=== PATIENT | male | born 1945 | race Caucasian/White ===

== ENCOUNTER 2016-06-25 11:42 | Observation (INO) | payer OTHER, MEDICARE ==
[2016-06-25] MEDS ORDERED: diphenhydrAMINE 25 MG CAP PO ONE (11:44)
[2016-06-25] MEDS ORDERED: NS 1,000 ML IV ONE (11:44)
[2016-06-25] MEDS ORDERED: ceFAZolin 2 GM/DEXTROSE 100 ML IV ONE (11:44)
[2016-06-25] MEDS ORDERED: DIAZEPAM 5 MG TAB PO ONE (11:44)
[2016-06-25] MEDS ORDERED: BACITRACIN IRRIGATION/NS 50,000 UNITS/1,000 ML BTL IRR ONE (11:44)
--- NOTE | 2016-06-25 12:05 | CPEKG ---
Heart Rate: 88 RR Interval: 682 QRSD Interval: 88 QT Interval: 372 QTC Interval: 450 QRS [place]: 118 T Wave [place]: 47 EKG Severity - ABNORMAL ECG - EKG Impression: ATRIAL FIBRILLATION, V-RATE 61-103 EKG Impression: RIGHT AXIS DEVIATION EKG Impression: LOW VOLTAGE THROUGHOUT EKG Impression: BORDERLINE R WAVE PROGRESSION, ANTERIOR LEADS Electronically Signed By: Graham Hayes 25-Jun-2016 16:56:51
[2016-06-25 12:21] LABS: % IMMATURE GRANULYOCYTES 0.3 % (0.0-1.1); ABSOLUTE IMMATURE GRANULOCYTES 0.03 10^3/uL (0.00-0.10); ADD DIFF? NO; ADD MORPH? NO; ADD SCAN? NO; ATYPICAL LYMPHOCYTE FLAG 10 (0-99); FRAGMENT RBC FLAG 0 (0-99); HEMATOCRIT 47.8 % (40.0-51.0); HEMOGLOBIN 16.2 g/dL (13.7-17.5); LEFT SHIFT FLG 0 (0-99); LIPEMIA HEMOLYSIS FLAG 90 (0-99); MEAN CELL HEMOGLOBIN 31.3 pg (27.9-34.1); MEAN CELL HEMOGLOBIN CONCENTR. 33.9 g/dL (32.4-36.7); MEAN CELL VOLUME 92.5 fL (81.5-99.8); MEAN PLATELET VOLUME 8.9 fL (8.7-11.7); PLATELET CLUMPS FLAG 0 (0-99); PLATELET COUNT 261 10^3/uL (150-400); RED BLOOD CELL COUNT 5.17 10^6/uL (4.40-6.38); RED CELL DISTRIBUTION WIDTH 14.2 % (11.5-15.2)
[2016-06-25 12:39] LABS: INR 1.16 (0.83-1.16); PROTIME(PATIENT) 14.8 SEC (12.0-15.0)
[2016-06-25] MEDS ORDERED: LIDOCAINE 1% 30 ML SDV ONE (12:47)
[2016-06-25] MEDS ORDERED: BUPIVACAINE 0.5% 30 ML SDV ONE (12:48)
[2016-06-25] MEDS ORDERED: LIDO/EPI 1% **for epidural** 30 ML SDV ONE (12:48)
[2016-06-25] MEDS ORDERED: fentaNYL 100 MCG/2 ML INJ ONE ×2 (12:48→14:26)
[2016-06-25] MEDS ORDERED: IOPAMIDOL (ISOVUE-300) 200 ML BTL IV ONE (12:48)
[2016-06-25] MEDS ORDERED: MIDAZOLAM 2 MG/2 ML VIAL ONE ×2 (12:48→14:26)
[2016-06-25 14:06] LABS: ANION GAP 8 mEq/L (8-16); CALCIUM 8.8 mg/dL (8.5-10.4); CARBON DIOXIDE 24 mEq/l (22-31); CHLORIDE 107 mEq/L (97-110); CREATININE 0.8 mg/dL (0.7-1.3); GLOMERULAR FILTRATION RATE > 60; GLUCOSE 89 mg/dL (70-100); POTASSIUM 4.6 mEq/L (3.5-5.2); SODIUM 139 mEq/L (134-144)
--- NOTE | 2016-06-25 15:17 | CPEKG ---
Heart Rate: 81 RR Interval: 741 QRSD Interval: 90 QT Interval: 380 QTC Interval: 441 QRS [place]: 110 T Wave [place]: 38 EKG Severity - ABNORMAL ECG - EKG Impression: ATRIAL FIBRILLATION, V-RATE 67-96 EKG Impression: VENTRICULAR PREMATURE COMPLEX EKG Impression: RIGHT AXIS DEVIATION EKG Impression: LOW VOLTAGE THROUGHOUT EKG Impression: demand ventricular pacemaker. Electronically Signed By: Graham Hayes 25-Jun-2016 16:56:44
--- NOTE | 2016-06-25 15:23 | CPIP ---
[f rep st] INVASIVE CARDIAC PROCEDURE DATE OF PROCEDURE: 06/25/2016 INDICATIONS: Mr. Vallecillo is 70 years old. He has a history of chronic atrial fibrillation with sick sinus syndrome. Holter monitoring indicated multiple cardiac pauses up to 3.5 seconds associated wit h previous diagnosed episodes of syncope. PROCEDURE: Implantation of a single-chamber pacemaker. TECHNIQUE: Following informed consent and after the administration of prophylactic antibiotics, the patient was brought to the cardiac catheterization laboratory. The left chest was prepped and draped in the usual sterile fashion. 2% lidocaine was infiltrated into the skin below the left clavicle. A venogram was performed, which identified a widely patent axillary and subclavian system. Using the #10 blade, a 3 cm incision was made, which was carried down to the prepectoral fascia. The pacemake r pocket was fashioned. Using modified Seldinger technique, access was gained to the axillary vein. A 0.035 J-wire was then positioned in the axillary vein, followed by a 6-Italian SafeSheath. At this point, the right ventricular lead was brought to the field and passed easily into right ventr icular apex, and screwed into place. The sheath was then torn away and the lead secured to the pacem jose angel pocket floor using 0 Ethibond. The lead was tested with excellent capture and sensing threshold s. The pocket was irrigated with antibiotic-containing solution. The pacemaker was brought to the field. The lead was identified by the serial number and affixed to the header according to leadership development manager's guidelines. The device and the redundant portion of the ventr icular lead were then placed in the pocket. The pocket was then closed in 3 layers, initially using 2-0 and 3-0 Vicryl and finally, running subcuticular StrataFix for the skin. Steri-Strips and a dry dressing were applied. COMPLICATIONS: None. DEVICE INFORMATION: The pacemaker is a [employer] Assurity model #TR0042, serial #[id number]. Th e ventricular lead is a [employer] Tendril SDX model #2088TC, 58 cm lead, serial #[id number]. C apture in the ventricle 0.9 V at 0.5 milliseconds with sensed R-waves of 6.4 mV, lead impedance of 83 1 ohms, and no diaphragmatic stimulation. DISPOSITION: The patient will be recovered in the CVC and monitored on telemetry overnight, and dis charged home tomorrow. /[id number]/MODL
--- NOTE | 2016-06-25 16:30 | DX ---
Portable Chest at 1547 hours on June 25, 2016 History: Post pacemaker placement. Comparison: PA and lateral chest December 23, 2010. Findings: Single lead left subclavian pacemaker is in expected position, overlying the right ventric le, with no visible pneumothorax. Mild interstitial prominence suggesting emphysema is unchanged. The re is no focal consolidation or pleural effusion. Heart size is normal. Degenerative change is presen t in the spine. Impression: Left subclavian pacemaker with no visible complication.
[2016-06-25 20:20] VITALS: O2SAT 94
[2016-06-25] MEDS ORDERED: PRAVASTATIN SODIUM 10 MG TAB PO SCH (21:00)
[2016-06-26 04:55] LABS: % IMMATURE GRANULYOCYTES 0.3 % (0.0-1.1); ABSOLUTE IMMATURE GRANULOCYTES 0.03 10^3/uL (0.00-0.10); ADD DIFF? NO; ADD MORPH? NO; ADD SCAN? NO; ATYPICAL LYMPHOCYTE FLAG 10 (0-99); FRAGMENT RBC FLAG 0 (0-99); HEMATOCRIT 43.2 % (40.0-51.0); HEMOGLOBIN 14.5 g/dL (13.7-17.5); LEFT SHIFT FLG 0 (0-99); LIPEMIA HEMOLYSIS FLAG 80 (0-99); MEAN CELL HEMOGLOBIN 31.5 pg (27.9-34.1); MEAN CELL HEMOGLOBIN CONCENTR. 33.6 g/dL (32.4-36.7); MEAN CELL VOLUME 93.7 fL (81.5-99.8); MEAN PLATELET VOLUME 8.9 fL (8.7-11.7); PLATELET CLUMPS FLAG 10 (0-99); PLATELET COUNT 229 10^3/uL (150-400); RED BLOOD CELL COUNT 4.61 10^6/uL (4.40-6.38); RED CELL DISTRIBUTION WIDTH 14.3 % (11.5-15.2)
[2016-06-26 05:03] LABS: ANION GAP 5 mEq/L (8-16); CALCIUM 8.6 mg/dL (8.5-10.4); CARBON DIOXIDE 27 mEq/l (22-31); CHLORIDE 105 mEq/L (97-110); CREATININE 0.9 mg/dL (0.7-1.3); GLOMERULAR FILTRATION RATE > 60; GLUCOSE 76 mg/dL (70-100); POTASSIUM 4.6 mEq/L (3.5-5.2); SODIUM 137 mEq/L (134-144)
[2016-06-26 07:56] VITALS: BP 112/71; PULSE 87; RESP 20; TEMP 98.1
--- NOTE | 2016-06-26 08:26 | CPEKG ---
Heart Rate: 90 RR Interval: 667 QRSD Interval: 98 QT Interval: 388 QTC Interval: 475 QRS [place]: 109 T Wave [place]: -14 EKG Severity - ABNORMAL ECG - EKG Impression: AFIB/FLUT AND V-PACED COMPLEXES EKG Impression: PVC Electronically Signed By: Graham Hayes 26-Jun-2016 17:07:35
--- NOTE | 2016-06-26 08:44 | DX ---
Two-View Chest June 26, 2016, 0821 Hours Clinical Indication: Follow up pacer. Comparison: June 25, 2016, at 1547 hours. Findings: Single lead pacer from a left-sided approach remains in stable position. Heart size is norm al. Lungs are clear. Bones are unremarkable. Impression: Unchanged pacer unit.
--- NOTE | 2016-06-26 09:49 | GDS ---
[f rep st] DISCHARGE SUMMARY PRIMARY MERCHANT MARINER: Dr. Francisco Rivera. DISCHARGE DIAGNOSES: 1. Likely permanent atrial fibrillation. 2. Tachy-cass syndrome. 3. Status post single-chamber [employer] pacemaker. HOSPITAL COURSE: For detailed H and P, please see prior dictation. Briefly, the patient is a 70-yea r-old male with a history of likely permanent atrial fibrillation. He has had 2 episodes of syncope in the past and 1 episode of near syncope recently. He wore a CardioNet monitor and was found to hav e clear-cut tachy-cass syndrome. Ultimately, the decision was made to proceed with a single-chamber pacemaker, which was performed by Dr. Francisco rivera on June 25, 2016. He had a [employer] single-chamb er device placed. The procedure was uncomplicated. The following morning, he complained of some mil d discomfort over his pacer site, but no significant pain. There is no evidence of hematoma or infec tion. His device was interrogated the morning of discharge and is working properly. He had a chest x-ray post pacer implantation and the following morning, both of which were negative for pneumothorax . His EKG shows atrial fibrillation. He is currently rate controlled on telemetry. PHYSICAL EXAMINATION: VITALS: Blood pressure 102/68, heart rate 71, respirations 28, oxygen saturat ion of 97% on room air. CARDIAC: Irregular rhythm without any significant murmurs, rubs or gallops appreciated. LUNGS: Clear to auscultation. No wheezes, rhonchi, or crackles auscultated. Chest wa ll pacer site is clean and intact without any evidence of infection or hematoma. DISCHARGE MEDICATIONS: His medications are unchanged. He will continue lovastatin 10 mg at bedtime. He will resume Eliquis 5 mg b.i.d. this evening. He should continue vitamin D3 5,000 units daily, multivitamin and fish oil 1000 mg daily. PLAN: The patient is currently stable and ready for discharge home. He has been given pacer precaut ions. He will follow up in our office as scheduled in 1 week for a wound check and pacer interrogati on. He is also scheduled to follow up with Dr. Rivera, at which time further medical therapy, if nece ssary, can be initiated. /[id number]/MODL
== END 2016-06-26 09:43 | disposition home or self-care (01) ==
LOC: FCATH 11:42 → UNDOADMOB 15:37 → F2W 15:37
PROVIDERS: ADMIT Internal Medicine Cardiovascular Disease; ATTEND Internal Medicine Cardiovascular Disease
PROC: 02HL3JZ Insertion of Pacemaker Lead into Left Ventricle, Percutaneous Approach (ICD-10-PCS; principal; 2016-06-25)
PROC: 0JH Subcutaneous Tissue and Fascia, Insertion (ICD-10-PCS; principal; 2016-06-25)
DX: I49.5 Sick sinus syndrome (principal); I48.2 Chronic atrial fibrillation; E78.00 Pure hypercholesterolemia, unspecified; F10.21 Alcohol dependence, in remission; Z85.46 Personal history of malignant neoplasm of prostate; Z87.891 Personal history of nicotine dependence
CPT/HCPCS: 33207; 71010; 71020; 93005; A4649; C1786; C1898; J0690; J2250; J3010; Q9967

== ENCOUNTER → 2017-06-26 | Outpatient (CLI) | payer OTHER, MEDICARE | LOC: CIMAGING 12:42 | PROVIDERS: ATTEND Family Medicine | DX: R50.9 Fever, unspecified (principal) | CPT/HCPCS: 71046-PO; 85652-PO ==

== ENCOUNTER → 2018-09-10 | Outpatient (CLI) | payer OTHER, MEDICARE | LOC: CIMAGING 09:28 | PROVIDERS: ATTEND Family Medicine | DX: R05 Cough (principal) | CPT/HCPCS: 71046-PO ==